=== PATIENT | male | born 1950 | race Caucasian/White ===

== ENCOUNTER → 2016-08-12 | Outpatient (REF) | payer MEDICARE | LOC: LAB 09:57 | PROVIDERS: ATTEND Family Medicine | DX: E11.9 Type 2 diabetes mellitus without complications (principal) | CPT/HCPCS: 83036 ==

== ENCOUNTER → 2016-11-16 | Outpatient (REF) | payer MEDICARE ==
[~2016-11-16] MED LIST: ALLO100T PO; AMLO10TA82 PO; ASPI-860 PO; ATOR80TA PO; HYDR-3702 PO; LEVE250T5 PO; METO-71 PO; MTP50T PO; NF-LISIN40 PO; ONDA4TAB8 PO; PHEN100C11 PO; PHEN200C3 PO; TERA1CAP3 PO
== END ==
LOC: LAB 11:05
PROVIDERS: ATTEND Family Medicine
DX: E11.9 Type 2 diabetes mellitus without complications (principal)
CPT/HCPCS: 83036